=== PATIENT | female | born 2000 | race African-American/Black ===

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

== ENCOUNTER 2020-09-09 05:36 | Inpatient (IN) | payer OTHER ==
[~2020-09-09] VITALS: Ht 162.6 cm; Wt 72.6 kg
[~2020-09-09 05:36] MED LIST: AUGMENTIN 875-1 EACH PO; COLACE 100MG C100 MG PO; FLAGYL500 MG PO; IBUPROFEN600 MG PO; LORTAB 5-325 M1 EACH PO; NORCO 5-325 TA1 EACH PO; PRENATABS FA T1 EACH PO; Viscous lidocaine 2%; ZITHROMAX1 GM PO
[2020-09-09 06:52] LABS: HEMOGLOBIN 9.3 gm/dl (12.3-15.3); RED BLOOD COUNT 3.74 M/UL (4.00-5.10); WHITE BLOOD COUNT 9.8 K/UL (4.5-11.0)
[2020-09-09] MEDS ORDERED: IBUPROFEN600 MG PO (16:10)
[2020-09-09] MEDS ORDERED: DOCUSATE SODIU250 MG PO (16:10)
[2020-09-10 07:00] LABS: HEMOGLOBIN 8.3 gm/dl (12.3-15.3)
== END 2020-09-10 18:34 | disposition home or self-care (01) | DRG 807 ==
LOC: OB 05:36
PROVIDERS: ADMIT Obstetrics & Gynecology
PROC: 10E0XZZ Delivery of Products of Conception, External Approach (ICD-10-PCS; principal; 2020-09-09)
PROC: 10907ZC Drainage of Amniotic Fluid, Therapeutic from Products of Conception, Via Natural or Artificial Opening (ICD-10-PCS; 2020-09-09)
DX: O99.334 Smoking (tobacco) complicating childbirth (principal); Z37.0 Single live birth; Z3A.39 39 weeks gestation of pregnancy; Z87.891 Personal history of nicotine dependence
CPT/HCPCS: 36415; 51702; 81001; 82800; 85014; 85018; 85025; 90471; 90715; J2795; J3010

== ENCOUNTER 2021-10-24 17:54 | Emergency (ER) | payer OTHER ==
[~2021-10-24 17:54] MED LIST changes: +DOCUSATE SODIU250 MG PO
== END 2021-10-24 20:20 | disposition home or self-care (01) ==
LOC: ER1 17:54
DX: J06.9 Acute upper respiratory infection, unspecified (principal); F17.290 Nicotine dependence, other tobacco product, uncomplicated; R40.2410 Glasgow coma scale score 13-15, unspecified time; Z20.822 Contact with and (suspected) exposure to COVID-19
CPT/HCPCS: 0240U; 99283